=== PATIENT | female | born 1950 | race Caucasian/White ===

== ENCOUNTER 2020-12-14 19:02 | Emergency (ER) | payer MEDICARE, SELFPAY ==
[2020-12-14 19:15] VITALS: BP 125/72; PULSE 74; RESP 15; TEMP 36.3; O2SAT 100
--- NOTE | 2020-12-14 19:24 | ED.GENADULT ---
HPI - General Adult General Chief complaint: Urogenital-Female Stated complaint: uti Source: patient Mode of arrival: ambulatory Limitations: no limitations History of Present Illness HPI narrative: Patient is a 70-year-old female presents to the [facility] via POV for evaluation of a urinary problem that began approximately 1 week ago. Additionally, she reports fatigue, urinary frequency, right low back pain, and nausea. No improvement with increasing water intake. Nothing improves or worsen symptoms. History of kidney stones and UTIs. Patient states today's symptoms are more similar to kidney stones. She states her last UTI was years ago . She called her PCP who recommended her to be evaluated at an urgent care prompting today's visit. Of note, patient states the cause of her symptoms may be from a UTI, kidney stones or Fosamax. She states she started started Fosamax 3 months ago. Related Data Home Medications Medication Instructions Recorded Confirmed alendronate 70 mg PO DAILY 12/14/20 12/14/20 levothyroxine 100 mcg PO DAILY 12/14/20 12/14/20 meloxicam 15 mg PO DAILY 12/14/20 12/14/20 sertraline 50 mg PO DAILY 12/14/20 12/14/20 Allergies Allergy/AdvReac Type Severity Reaction Status Date / Time No Known Allergies Allergy Verified 12/14/20 19:04 Review of Systems Review of Systems: Narrative: Denies abdominal pain, constipation, cramping, diarrhea, dysuria, fever, hematuria, syncope, urinary urgency, vaginal bleeding, vaginal discharge, vomiting, incontinence, myalgias, swollen/painful nodes, chest pain, palpitations, and shortness of breath. PMFSH Past Medical History Medical History (Updated 12/14/20 @ 19:41 by RAI Conde, ) Age related osteoporosis Arthritis Depression Hypothyroidism Social History Social History Gender identity (if verbalized by the patient): Female Comments I have reviewed and agree with the patient's past medical, surgical, social, and family hx as documented by the RN. There is no relevant family history pertinent to the presenting complaint. Exam Narrative: Exam Narrative: GENERAL: Well-appearing, well-nourished, and in no acute distress. HEAD: Normocephalic, atraumatic. NECK: Supple. No lymphadenopathy or nuchal rigidity. CHEST: Lung sounds are clear to auscultation in bilateral lung barrett. No respiratory distress. HEART: Regular rate and rhythm. No murmur, gallop, or rub heard. ABDOMEN: Soft, non-tender, non-distended, normal active bowel sounds in all quadrants. No guarding. No rebound tenderness. No pulsatile or palpable abdominal mass(es). No CVAT : Bladder non-distended, non-tender EXTREMITIES: Normal range of motion. No edema. SKIN: Warm, dry, no rash. No skin color changes. Excellent turgor. NEURO: No focal deficits. Alert and oriented x3. SPECIAL OBSERVATIONS: Smiling. Laughing. No evidence of discomfort. C/O of of proportion to exam. Course Vital Signs Vital signs: Vital Signs Temperature 97.3 F L 12/14/20 19:15 Pulse Rate 74 12/14/20 19:15 Respiratory Rate 15 12/14/20 19:15 Blood Pressure 125/72 12/14/20 19:15 Pulse Oximetry 100 12/14/20 19:15 Temperature 97.3 F L 12/14/20 19:15 Pulse Rate 74 12/14/20 19:15 Respiratory Rate 15 12/14/20 19:15 Blood Pressure 125/72 12/14/20 19:15 Pulse Oximetry 100 12/14/20 19:15 Reviewed Medical Decision Making Differential Diagnosis Differential Diagnosis: Nephrolithiasis, urinary tract infection, pyelonephritis, frequency of micturition, dysuria Medical Records Medical records reviewed: Yes I reviewed the external patient's medical records. Vital Signs Vital Signs: Vital Signs Temperature 97.3 F L 12/14/20 19:15 Pulse Rate 74 12/14/20 19:15 Respiratory Rate 15 12/14/20 19:15 Blood Pressure 125/72 12/14/20 19:15 Pulse Oximetry 100 12/14/20 19:15 Temperature 97.3 F L
== END 2020-12-14 19:52 | disposition home or self-care (01) ==
PROVIDERS: Emergency Provider Nurse Practitioner Family
DX: R35.0 Frequency of micturition (principal); M81.0 Age-related osteoporosis without current pathological fracture; M19.90 Unspecified osteoarthritis, unspecified site; F32.9 Major depressive disorder, single episode, unspecified; E03.9 Hypothyroidism, unspecified
CPT/HCPCS: 81003; 99212; G0463

== ENCOUNTER 2024-12-08 14:39 | Emergency (ER) | payer MEDICARE, SELFPAY ==
--- NOTE | ~2024-12-08 | CT_ITS ---
CLINICAL INDICATION: Nausea vomiting and diarrhea COMPARISON: 07/24/2018. TECHNIQUE: Multiple contiguous axial images of the abdomen and pelvis were performed following the ad ministration of with 100 mL Omnipaque-350 intravenous contrast The dose-length product (DLP) was 642.73 mGy-cm. Automated exposure control and iterative reconstruction technique were employed. FINDINGS/OBSERVATIONS: Visualized lower thorax: Trace bibasilar atelectasis. The remainder of the lungs are clear. The heart is borderline enlarged, without pericardial effusion. Small hiatal hernia is present. Liver: The liver demonstrates homogeneous enhancement and is not enlarged. Gallbladder and biliary system: The gallbladder is only minimally distended, and otherwise unremarkable. Pancreas: The pancreas enhances homogeneously without ductal dilatation. Spleen: The spleen enhances homogeneously and is not enlarged. Kidneys: The bilateral kidneys enhance symmetrically without hydronephrosis or renal calculi. Early excretion is detected. Adrenal glands: Unremarkable. Gastrointestinal tract: Colon is fluid-filled, and otherwise unremarkable. Small bowel is decompressed. Appendix: The appendix is not definitively visualized. However, no pericecal inflammatory change is identified suggest the presence of acute appendicitis. Vasculature: Unremarkable. Lymph nodes: No pathologically enlarged or morphologically suspicious lymph nodes within the retroperitoneum or at the root of the mesentery. Pelvic structures: The bladder is distended, and otherwise unremarkable. The uterus is anteverted and anteflexed. Body wall and musculoskeletal: Small complex fat-containing umbilical hernia. Age-appropriate degenerative disease within the lower thoracic and lumbosacral spine, most prominent at the level of L3/L4 with osteophyte formation, disc space narrowing, endplate changes and facet art hropathy. IMPRESSION: No acute pathology is identified within the lower chest, abdomen or pelvis, as detailed above. Reviewed, dictated and finalized at location A.
[2024-12-08 14:55] VITALS: BP 131/62; PULSE 84; RESP 16; TEMP 36.6; O2SAT 97
[2024-12-08 17:23] LABS: Basophils Percent Auto 0.3 % (0.2-1.2); Eosinophils Percent Auto 0.1 % (0-4.4); Hematocrit 37.9 % (37.0-47.0); Hemoglobin 12.6 g/dL (12.0-15.0); Immature Granulocyte Absolute 0.05 K/mm3 (0.00-0.031); Immature Granulocyte Percent A 0.5 % (0-0.5); Lymphocytes Absolute Auto 0.61 K/mm3 (0.9-3.2); Lymphocytes Percent Auto 6.4 % (18.3-44.2); Mean Corpuscular HGB Conc 33.2 g/dl (32-36); Mean Corpuscular Hemoglobin 30.3 pg (26-34); Mean Corpuscular Volume 91.1 fl (80-100); Mean Platelet Volume 9.4 fl (7.4-10.4); Monocytes Absolute Auto 0.9 K/mm3 (0.1-0.6); Monocytes Percent Auto 9.5 % (2.6-8.5); Neutrophils Absolute Auto 7.9 K/mm3 (1.3-6.7); Neutrophils Percent Auto 83.2 % (45.5-73.1); Platelet Count Result 273 k/mm3 (150-375); Red Blood Count 4.16 M/mm3 (4.2-5.4); Red Cell Distribution Width 13.4 % (11.5-14.5); White Blood Count 9.5 K/mm3 (4.5-10.0)
[2024-12-08 17:33] LABS: Alanine Aminotransferase 36 U/L (6-35); Albumin Level 4.1 g/dL (3.5-5.1); Alkaline Phosphatase 54 U/L (38-126); Anion Gap 9 mmol/L (4-12); Aspartate Amino Transferase 32 U/L (14-36); Bilirubin,Total 0.4 mg/dL (0.2-1.3); Blood Urea Nitrogen 13 mg/dL (7-17); Calcium 8.8 mg/dL (8.4-10.2); Carbon Dioxide 20 mmol/L (22-30); Chloride 96 mmol/L (98-107); Estimated CRCL calculation 64 ml/min; Estimated Glomerular Filt Rate > 60; Glucose 103 mg/dL (65-110); Lipase 97 U/L (23-300); Potassium 3.8 mmol/L (3.4-5.0); Sodium 125 mmol/L (137-145); Total Protein 7.3 g/dL (6.3-8.2)
[2024-12-08 17:58] VITALS: BP 134/67; PULSE 68; RESP 17; O2SAT 98
--- NOTE | 2024-12-08 18:10 | ED_ITS ---
HPI - Nausea/Vomiting/Diarrhea General Chief complaint: Nausea/Vomiting/Diarrhea Stated complaint: n/v/d Time Seen by Provider: 12/08/24 16:59 Source: patient Mode of arrival: ambulatory Limitations: no limitations History of Present Illness HPI Narrative: Patient is a 74-year-old female who presents the ED with report of N/V/D. Patient reports she developed diarrhea around 6:00 a.m. this morning. Reported having multiple episodes of diarrhea. Denies rectal bleeding or melena. Began having nausea, vomiting throughout the day today. Difficulty keeping down food or drink. Feels very weak and dehydrated. Does note that she ate out at a restaurant last night and may have had a bad hamburger. Denies significant abdominal pain. Denies fevers. Related Data Home Medications ?Medication ?Instructions ?Recorded ?Confirmed ?Last Taken ?Type alendronate 70 mg tablet 70 mg PO DAILY 12/14/20 12/14/20 Unknown History levothyroxine 100 mcg tablet 100 mcg PO DAILY 12/14/20 12/14/20 Unknown History meloxicam 15 mg tablet 15 mg PO DAILY 12/14/20 12/14/20 Unknown History sertraline 50 mg tablet 50 mg PO DAILY 12/14/20 12/14/20 Unknown History Allergies Allergy/AdvReac Type Severity Reaction Status Date / Time No Known Allergies Allergy Verified 12/14/20 19:04 Review of Systems 2 Review of Systems: All systems reviewed & are unremarkable except as noted in HPI. All systems reviewed & are unremarkable except as noted in HPI and below PMFSH Past Medical History Medical History Arthritis Depression Age related osteoporosis Hypothyroidism Social History Social History Gender identity (if verbalized by the patient): Female Exam 2 Narrative: GENERAL: Well appearing, obese with BMI of 30.3, non-toxic, in no acute distress. HEAD: Normocephalic, atraumatic. RESPIRATORY: Airway patent, respirations nonlabored. Clear to auscultation bilaterally, no rales, rhonchi, wheezing. CARDIOVASCULAR: Regular rate and rhythm without murmurs, rubs, or gallops. ABDOMINAL: Soft, mild diffuse TTP, nondistended. Normoactive BS. MUSCULOSKELETAL: Moves all extremities. No gross deformities. SKIN: Warm, dry, normal color. NEURO: A&O X3. Speech clear. PSYCHIATRIC: Appropriate mood and affect. Normal interaction. Course Vital Signs Vital signs: Vital Signs Temperature 97.8 F 12/08/24 14:55 Pulse Rate 84 12/08/24 14:55 Respiratory Rate 16 12/08/24 14:55 Blood Pressure 131/62 12/08/24 14:55 Pulse Oximetry 97 12/08/24 14:55 Temperature 97.8 F 12/08/24 14:55 Pulse Rate 71 12/08/24 21:35 Respiratory Rate 15 12/08/24 21:35 Blood Pressure 142/70 H 12/08/24 21:35 Pulse Oximetry 97 12/08/24 21:35 MDM - Nausea/Vomiting/Diarrhea MDM Narrative Medical decision making narrative: Patient presented to ED with N/V/D that began this morning. Feeling very weak and dehydrated. Vital signs stable upon arrival. Patient in no acute distress. Cbc without leukocytosis or anemia. CMP with hyponatremia at 125. Bicarb 20. Normal anion gap. Stable kidney function. Otherwise stable electrolytes. UA with 2+ ketones, 6-10 WBC, but occasional squamous cells. Sent for culture. Patient denies any urinary complaints. Likely contaminated catch. Will defer to culture results. CT abd pelvis obtained and unremarkable. No intra- abdominal abnormalities. Discussed lab and imaging findings, overall reassuring workup with patient. Discussed possibility of food poisoning versus gastroenteritis. Patient feeling improved with supportive therapy. Able to tolerate p.o. intake. Will discharge with short course of Zofran for home use. Given return precautions. She agrees with plan. Discharged in stable condition. Medical Records Attestation: I reviewed the patient's medical records. Lab Data Attestation: I reviewed the patient's lab results. 12/08/24 17:16 12/08/24 17:16 Labs: Lab Results 12/08/24 12/08/24 Range/Units 17:16 18:11 WBC 9.5 (4.5-10.0) K/mm3 RBC 4.16 L (4.2-5.4) M/mm3 Hgb 12.6 (12.0-15.0) g/dL Hct 37.9 (37.0-47.0) % MCV 91.1 (80-100) fl MCH 30.3 (26-34) pg MCHC 33.2 (32-36) g/dl RDW 13.4 (11.5-14.5) % Plt Count 273 (150-375) k/mm3 MPV 9.4 (7.4-10.4) fl Immature Gran % (Auto) 0.5 (0-0.5) % Neut % (Auto) 83.2 H (45.5-73.1) % Lymph % (Auto) 6.4 L (18.3-44.2) % [place] % (Auto) 9.5 H (2.6-8.5) % Eos % (Auto) 0.1 (0-4.4) % Baso % (Auto) 0.3 (0.2-1.2) % Lymph # (Auto) 0.61 L (0.9-3.2) K/mm3 [place] # (Auto) 0.9 H (0.1-0.6) K/mm3 Eos # (Auto) 0.0 (0-0.3) K/mm3 Baso # (Auto) 0.0 (0.0-0.1) K/mm3 Abs Immat Gran (auto) 0.05 H (0.00-0.031) K/mm3 Absolute Neuts (auto) 7.9 H (1.3-6.7) K/mm3 Absolute Nucleated RBC 0.000 (0.0-0.012) K/mm3 Nucleated RBC % 0.0 (0.0-0.2) % Sodium 125 L (137-145) mmol/L Potassium 3.8 (3.4-5.0) mmol/L Chloride 96 L (98-107) mmol/L Carbon Dioxide 20 L (22-30) mmol/L Anion Gap 9 (4-12) mmol/L BUN 13 (7-17) mg/dL Creatinine 0.68 L (0.7-1.0) mg/dL Estim Creat Clear Calc 64 ml/min Estimated GFR > 60 (59 - ) Glucose 103 (65-110) mg/dL Calcium 8.8 (8.4-10.2) mg/dL Magnesium 1.9 (1.6-2.3) mg/dL Total Bilirubin 0.4 (0.2-1.3) mg/dL AST 32 (14-36) U/L ALT 36 H (6-35) U/L Alkaline Phosphatase 54 (38-126) U/L Total Protein 7.3 (6.3-8.2) g/dL Albumin 4.1 (3.5-5.1) g/dL Lipase 97 (23-300) U/L Urine Color Yellow (Yellow) Urine Appearance Clear (Clear) Urine pH 7.0 (5.0-9.0) Ur Specific [place] 1.015 (1.001-1.035) Urine Protein Negative (Negative) mg/dL Urine Glucose (UA) Negative (Negative) mg/dL Urine Ketones 2+ H (Negative) mg/dL Ur Blood (Man) Negative (Negative) Urine Nitrate Negative (Negative) Urine Bilirubin Negative (Negative) Urine Urobilinogen 0.2 (<2.0) mg/dL Leukocyte Esterase Rfl 2+ H (Negative) ALLI/UL Urine RBC 6-10 H (0-2) /hpf Urine WBC 6-10 H (0-3) /hpf Ur Squamous Epith Cells Occasional (Few) /hpf Urine Bacteria Trace (None) /hpf Urine Casts 0-2 Imaging Data Attestation: I personally reviewed and interpreted this imaging study as follows: Radiologist's impression: ITS Impressions Abdomen/Pelvis CT 12/08/24 19:44 IMPRESSION: No acute pathology is identified within the lower chest, abdomen or pelvis, as detailed above. Discharge Plan Discharge Clinical Impression: Gastroenteritis Patient Disposition: Home Condition: Stable Instructions: Antibiotic Form, Dehydration (ED), Clear Liquid Diet (ED), Acute Nausea and Vomiting (ED) Additional Instructions: Utilize zofran as needed for further nausea. Increase fluid intake. Recommend electrolyte rich fluids, gatorade, pedialyte, body armour. Recommend clear liquids or bland diet until symptoms improve, such as bananas, rice, applesauce, toast, or crackers. Follow up with your primary care doctor for further evaluation. Return to the ED if you experience worsening or severe symptoms, unable to keep down food or drink, severe pain, fevers, rectal bleeding, vomiting blood, or any other symptoms of concern. Patient Language: Haitian Prescriptions: New ondansetron 4 mg tablet,disintegrating 4 mg PO Q8H PRN (Reason: nausea and vomiting) Qty: 15 0RF No Action meloxicam 15 mg tablet 15 mg PO DAILY alendronate 70 mg tablet 70 mg PO DAILY levothyroxine 100 mcg tablet 100 mcg PO DAILY sertraline 50 mg tablet 50 mg PO DAILY Follow-up/Referrals: PHYSICIAN NOT ON STAFF,NONSTAFF [Primary Care Provider] - Time of Disposition: 20:55
[2024-12-08] MEDS: SODIUM CHLORIDE 0.9% IV 1,000 ML 999 ML IV CONT ×2 (18:22)
[2024-12-08] MEDS: ONDANSETRON INJ 4 MG/2 ML VIAL IV PUSH (18:33)
[2024-12-08 18:45] LABS: Add Urine Microscopic? YES; Appearance Urine Clear (Clear); Bilirubin Urine Negative (Negative); Blood Urine Negative (Negative); Color Urine Yellow (Yellow); Glucose Urine UA Negative (Negative); Ketones Urine 2+ mg/dL (Negative); Leukocyte Esterase Ur 2+ LEU/UL (Negative); Nitrate Urine Negative (Negative); Non Pathogenic Casts 0-2; Protein Urine Negative (Negative); Specific Grav Ur 1.015 (1.001-1.035); Squamous Epithelial Cell Urine Occasional /hpf (Few); Urobilinogen Urine 0.2 mg/dL (<2.0)
[2024-12-08 18:50] LABS: Bacteria Urine Trace /hpf
[2024-12-08 18:51] LABS: Magnesium 1.9 mg/dL (1.6-2.3)
--- NOTE | 2024-12-08 20:19 | PC.NURSE ---
Received report from LIZET Cardenas for cont. of care. Pt ambulatory to bathroom, with even and steady gait. Pt AOX4, denies n/v.
[2024-12-08 21:35] VITALS: BP 142/70; PULSE 71; RESP 15; O2SAT 97
== END 2024-12-08 21:45 | disposition home or self-care (01) ==
PROVIDERS: Emergency Medicine; Emergency Provider Physician Assistant
DX: K52.9 Noninfective gastroenteritis and colitis, unspecified (principal); E03.9 Hypothyroidism, unspecified; M19.90 Unspecified osteoarthritis, unspecified site; M81.0 Age-related osteoporosis without current pathological fracture; F32.A Depression, unspecified; R82.998 Other abnormal findings in urine
CPT/HCPCS: 36415; 74177; 80053; 81001; 83690; 83735; 85025; 87086; 96361; 96374; 99284; J2405; J7030; Q9967

== ENCOUNTER 2025-05-13 16:36 | Emergency (ER) | payer MEDICARE, SELFPAY ==
--- NOTE | ~2025-05-13 | CT_ITS ---
EXAMINATION: CT brain wo alexander, 05/13/2025 16:55 [employer] HISTORY: syncope COMPARISON: No comparisons available. Technique: Axial images obtained of the brain without contrast. One or more of the following dose reduction techniques were used: automated exposure control, adjustment of the mA and/or kV according to patient size, use of iterative reconstruction technique. Findings: No acute infarct or parenchymal hemorrhage. No abnormal mass or mass effect. No midline shift. No extra-axial fluid collections. No hydrocephalus. Mastoid air cells unremarkable. Sinuses and orbits unremarkable. No acute fracture. No significant facial or scalp soft tissue swelling evident. No radiopaque foreign body is seen. Impression: 1.No acute intracranial abnormality. Reviewed, dictated and finalized at location P. HOUSE HELPER Impression: 1.No acute intracranial abnormality.
[2025-05-13 16:37] VITALS: BP 147/73; PULSE 73; RESP 13; O2SAT 100
--- NOTE | 2025-05-13 16:37 | ECG_ITS ---
Test Date: 2025-05-13 16:43:19 Measurements Intervals Phillips Rate: 60 P: 40 AK: 196 QRS: 3 QRSD: 94 T: 20 QT: 406 QTc: 409 Interpretive Statements SINUS RHYTHM LOW QRS VOLTAGE IN PRECORDIAL LEADS [QRS DEFLECTION < 1.0 mV IN CHEST LEADS] OTHERWISE NORMAL ELECTROCARDIOGRAM No previous ECG available for comparison Electronically Signed On 05-14-2025 09:14:00 [employer] by Az Salas M.D.
[2025-05-13 16:45] VITALS: O2SAT 100
[2025-05-13 17:42] LABS: Hematocrit 38.6 % (37.0-47.0); Hemoglobin 12.9 g/dL (12.0-15.0); Immature Granulocyte Percent A 0.5 % (0-0.5); Lymphocytes Absolute Auto 1.15 K/mm3 (0.9-3.2); Mean Corpuscular HGB Conc 33.4 g/dl (32-36); Mean Corpuscular Hemoglobin 31.4 pg (26-34); Mean Corpuscular Volume 93.9 fl (80-100); Nucleated Red Blood Cells Absolute Auto 0.000 K/mm3 (0.0-0.012); Nucleated Red Blood Cells Perc 0.0 % (0.0-0.2); Platelet Count Result 292 k/mm3 (150-375); Red Blood Count 4.11 M/mm3 (4.2-5.4); White Blood Count 8.6 K/mm3 (4.5-10.0)
[2025-05-13 18:01] LABS: Alanine Aminotransferase 25 U/L (6-35); Albumin Level 4.4 g/dL (3.5-5.1); Alkaline Phosphatase 63 U/L (38-126); Anion Gap 7 mmol/L (4-12); Aspartate Amino Transferase 29 U/L (14-36); Bilirubin,Total 0.4 mg/dL (0.2-1.3); Blood Urea Nitrogen 21 mg/dL (7-17); Calcium 9.6 mg/dL (8.4-10.2); Carbon Dioxide 23 mmol/L (22-30); Chloride 100 mmol/L (98-107); Estimated Glomerular Filt Rate > 60; Glucose 94 mg/dL (65-110); Potassium 4.7 mmol/L (3.4-5.0); Sodium 130 mmol/L (137-145); Total Protein 7.4 g/dL (6.3-8.2)
[2025-05-13 18:11] LABS: Troponin I < 0.012 ng/mL (0.000-0.034)
--- NOTE | 2025-05-13 18:34 | ED.SYNCOPE ---
HPI - Syncope General Chief Complaint: Syncope Stated Complaint: Syncopal Episode Shoveling Time Seen by Provider: 05/13/25 16:44 Source: patient and family Mode of arrival: EMS Limitations: no limitations History of Present Illness HPI narrative: 75-year-old with a history of hypothyroidism, osteoarthritis remote history of syncope was brought in by him as from home with the complaints of having syncopal episode. Patient states that she was preparing dinner felt pain in both knees was about to take Tylenol felt sick to her stomach and passed out. She denies having any chest pain, palpitations, headache or shortness of breath. Patient upon arrival to the ER has no complaints , she stated last time when she passed out she was found to be dehydrated complaint: loss of consciousness and felt faint Onset (ago): minute(s) (5) Prodromal symptoms: nausea/vomiting Witnessed: Yes - by Other () Context: standing up Injuries sustained associated with event: none Current symptoms: back to baseline Related Data Home Medications ?Medication ?Instructions ?Recorded ?Confirmed ?Last Taken ?Type alendronate 70 mg tablet 70 mg PO DAILY 12/14/20 12/14/20 Unknown History levothyroxine 100 mcg tablet 100 mcg PO DAILY 12/14/20 12/14/20 Unknown History meloxicam 15 mg tablet 15 mg PO DAILY 12/14/20 12/14/20 Unknown History sertraline 50 mg tablet 50 mg PO DAILY 12/14/20 12/14/20 Unknown History Allergies Allergy/AdvReac Type Severity Reaction Status Date / Time No Known Allergies Allergy Verified 12/14/20 19:04 Review of Systems Review of Systems: All systems reviewed & are unremarkable except as noted in HPI and below Constitutional: Constitutional: Reports no additional constitutional complaints Eyes: Eyes: Reports no additional eye complaints ENT: Reports system reviewed and no additional complaints, except as documented Cardiovascular: Cardiovascular: Reports no additional cardiovascular complaints Respiratory: Respiratory: Reports no additional respiratory complaints Gastrointestinal: Gastrointestinal: Reports no additional gastrointestinal complaints Musculoskeletal: Musculoskeletal: Reports no additional musculoskeletal complaints Neurologic: Reports system reviewed and no additional complaints, except as documented [facility] Past Medical History Medical History Arthritis Depression Age related osteoporosis Hypothyroidism Social History Social History Gender identity (if verbalized by the patient): Female Course Course Emergency Course: informed pt and her about her lab , EKG and CT findings, Vital Signs Vital signs: Vital Signs Pulse Rate 73 05/13/25 16:37 Respiratory Rate 13 05/13/25 16:37 Blood Pressure 147/73 H 05/13/25 16:37 Pulse Oximetry 100 05/13/25 16:37 Oxygen Delivery Room Air 05/13/25 16:37 Pulse Rate 73 05/13/25 16:37 Respiratory Rate 13 05/13/25 16:37 Blood Pressure 147/73 H 05/13/25 16:37 Pulse Oximetry 100 05/13/25 16:45 Oxygen Delivery Room Air 05/13/25 16:45 MDM - Syncope Differential Diagnosis Differential diagnosis: Likely syncope due to orthostatic hypotension, vasovagal syncope and dehydration Medical Records Attestation: I reviewed the patient's medical records. Lab Data Attestation: I reviewed the patient's lab results. 05/13/25 17:35 05/13/25 17:35 Labs: Lab Results 05/13/25 05/13/25 Range/Units 17:35 17:35 WBC 8.6 (4.5-10.0) K/mm3 RBC 4.11 L (4.2-5.4) M/mm3 Hgb 12.9 (12.0-15.0) g/dL Hct 38.6 (37.0-47.0) % MCV 93.9 (80-100) fl MCH 31.4 (26-34) pg MCHC 33.4 (32-36) g/dl RDW 13.2 (11.5-14.5) % Plt Count 292 (150-375) k/mm3 MPV 9.1 (7.4-10.4) fl Immature Gran % (Auto) 0.5 (0-0.5) % Neut % (Auto) 74.2 H (45.5-73.1) % Lymph % (Auto) 13.3 L (18.3-44.2) % [place] % (Auto) 9.7 H (2.6-8.5) % Eos % (Auto) 2.0 (0-4.4) % Baso % (Auto) 0.3 (0.2-1.2) % Lymph # (Auto) 1.15 (0.9-3.2) K/mm3 [place] # (Auto) 0.8 H (0.1-0.6) K/mm3 Eos # (Auto) 0.2 (0-0.3) K/mm3 Baso # (Auto) 0.0 (0.0-0.1) K/mm3 Abs Immat Gran (auto) 0.04 H (0.00-0.031) K/mm3 Absolute Neuts (auto) 6.4 (1.3-6.7) K/mm3 Absolute Nucleated RBC 0.000 (0.0-0.012) K/mm3 Nucleated RBC % 0.0 (0.0-0.2) % Sodium 130 L (137-145) mmol/L Potassium 4.7 (3.4-5.0) mmol/L Chloride 100 (98-107) mmol/L Carbon Dioxide 23 (22-30) mmol/L Anion Gap 7 (4-12) mmol/L BUN 21 H (7-17) mg/dL Creatinine 0.77 (0.7-1.0) mg/dL Estim Creat Clear Calc Not Reportable Estimated GFR > 60 (59 - ) Glucose 94 (65-110) mg/dL Calcium 9.6 (8.4-10.2) mg/dL Total Bilirubin 0.4 (0.2-1.3) mg/dL AST 29 (14-36) U/L ALT 25 (6-35) U/L Alkaline Phosphatase 63 (38-126) U/L Troponin I < 0.012 Cancelled (0.000-0.034) ng/mL Total Protein 7.4 (6.3-8.2) g/dL Albumin 4.4 (3.5-5.1) g/dL Imaging Data Radiologist's impression: ITS Impressions Head CT 05/13/25 17:30 Impression: 1.No acute intracranial abnormality. ECG Data EKG #1: ECG completion date: 05/13/25 ECG completion time: 16:43 EKG Interpretation: normal rate (60), no ectopy, no ST changes, normal QRS and normal QT Discharge Plan Discharge Clinical Impression: Vasovagal syncope Patient Disposition: Home Condition: Stable Instructions: Antibiotic Form, Syncope (ED) Additional Instructions: Continue home medications, follow with your doctor. Patient Language: Thai Prescriptions: No Action meloxicam 15 mg tablet 15 mg PO DAILY alendronate 70 mg tablet 70 mg PO DAILY levothyroxine 100 mcg tablet 100 mcg PO DAILY sertraline 50 mg tablet 50 mg PO DAILY ondansetron 4 mg tablet,disintegrating 4 mg PO Q8H PRN (Reason: nausea and vomiting) Qty: 15 0RF Follow-up/Referrals: PHYSICIAN NOT ON STAFF,NONSTAFF [Primary Care Provider] Ren Montilla MD [Physician, Family Practice] Time of Disposition: 18:54
== END 2025-05-13 19:17 | disposition home or self-care (01) ==
PROVIDERS: Emergency Provider Family Medicine
DX: R55 Syncope and collapse (principal); E03.9 Hypothyroidism, unspecified; M19.90 Unspecified osteoarthritis, unspecified site; M81.0 Age-related osteoporosis without current pathological fracture; F32.A Depression, unspecified; Z79.899 Other long term (current) drug therapy
CPT/HCPCS: 36415; 70450; 80053; 84484; 85025; 93005; 99284